=== PATIENT | female | born 1990 | race American Indian/Alaskan Native ===

== ENCOUNTER 2021-08-24 08:37 | Emergency (ER) | payer BC ==
[2021-08-24 08:53] VITALS: BP 119/57
[2021-08-24] MEDS ORDERED: ACETAMINOPHEN 500 MG TAB PO ONE (10:17)
[2021-08-24] MEDS ORDERED: SODIUM CHLORIDE 0.9% 1000 ML 1,000 ML IV ONE (11:26)
--- NOTE | 2021-08-24 11:27 | Emergency Department Report ---
ED Headache HPI - General Chief Complaint: Headache Stated Complaint: MIRGAINE Time Seen by Provider: 08/24/21 09:37 - History of Present Illness Allergies/Adverse Reactions: Allergies No Known Allergies Allergy (Unverified 08/24/21 08:49) ED Review of Systems ROS: Stated complaint: MIRGAINE Other details as noted in HPI Comment: All other systems reviewed and negative ED Past Medical Hx - Past Medical History Previous Medical History?: No - Surgical History Past Surgical History?: No - Family History Family history: no significant - Social History Smoking Status: Never Smoker Substance Use Type: Alcohol ED Physical Exam - General Limitations: No Limitations General appearance: alert, in no apparent distress - Head Head exam: Present: atraumatic, normocephalic - Eye Eye exam: Present: normal appearance - ENT ENT exam: Present: mucous membranes moist - Neck Neck exam: Present: normal inspection - Respiratory Respiratory exam: Present: normal lung sounds bilaterally. Absent: respiratory distress - Cardiovascular Cardiovascular Exam: Present: regular rate, normal rhythm. Absent: systolic murmur, diastolic murmur, rubs, gallop - GI/Abdominal GI/Abdominal exam: Present: soft, normal bowel sounds - Extremities Exam Extremities exam: Present: normal inspection - Back Exam Back exam: Present: normal inspection - Neurological Exam Neurological exam: Present: alert, oriented X3 - Psychiatric Psychiatric exam: Present: normal affect, normal mood - Skin Skin exam: Present: warm, dry, intact, normal color. Absent: rash ED Course Vital Signs 08/24/21 08:52 Temperature 98.4 F Pulse Rate 72 Respiratory 20 Rate Blood Pressure 119/57 O2 Sat by Pulse 100 Oximetry ED Medical Decision Making - Medical Decision Making Vital Signs 08/24/21 08:52 Temperature 98.4 F Pulse Rate 72 Respiratory 20 Rate Blood Pressure 119/57 O2 Sat by Pulse 100 Oximetry Vital Signs 08/24/21 08:52 Temperature 98.4 F Pulse Rate 72 Respiratory 20 Rate Blood Pressure 119/57 O2 Sat by Pulse 100 Oximetry Labs 08/24/21 10:25 Urine Color Straw Urine Turbidity Hazy Urine pH 7.0 Ur Specific [place] 1.010 Urine Protein 30 mg/dl Urine Glucose (UA) Negative Urine Ketones Negative Urine Blood Negative Urine Nitrite Negative Ur Reducing Substances Not Reportable Urine Bilirubin Negative Urine Ictotest Not Reportable Urine Urobilinogen < 2.0 Ur Leukocyte Esterase Negative Urine WBC (Auto) 1.0 Urine RBC (Auto) 4.0 U Epithel Cells (Auto) 17.0 H Urine Bacteria (Auto) 1+ Urine Mucus Few LABS NOTED BP CHECKED ON SEVERAL OCCASIONS BY ELI- NOT ELEVATED 1L NS AND 1 GM TYLENOL FOR PAIN DC HOME WITH D - Differential Diagnosis RO UTI Critical care attestation.: If time is entered above; I have spent that time in minutes in the direct care of this critically ill patient, excluding procedure time. ED Disposition Clinical Impression: Headache Qualifiers: Headache type: unspecified Disposition: 01 HOME / SELF CARE / HOMELESS Is pt being admited?: No Does the pt Need Aspirin: No Condition: Stable Additional Instructions: TYLENOL FOR PAIN STAY WELL HYDRATED FOLLOW UP WITH PCP AND OBGYN URI REFERRALS BELOW Referrals: CRISSY REED MD [Primary Care Provider] - 3-5 Days ALEXUS CAICEDO MD [Staff Physician] - 3-5 Days Time of Disposition: 12:34
[2021-08-24 11:33] LABS: Bacteria,Urine 1+ /HPF (Negative); Mucus,Urine FEW /HPF
[2021-08-24 11:46] LABS: Bilirubin,Urine Negative (Negative); Blood,Urine Negative (Negative); Color,Urine Straw (Yellow); Urobilinogen,Urine < 2.0 mg/dL (<2.0)
== END 2021-08-24 13:27 | disposition home or self-care (01) ==
LOC: ED 08:37
DX: O26.891 Other specified pregnancy related conditions, first trimester (principal); R51.9 Headache, unspecified; Z33.1 Pregnant state, incidental; F10.20 Alcohol dependence, uncomplicated
CPT/HCPCS: 81001; 96360; 99283; J7030; Q0162

== ENCOUNTER 2021-10-17 15:59 | Outpatient (CLI) | payer BC ==
[2021-10-17] MEDS ORDERED: LACTATED RINGERS 1,000 ML IV ONE (16:39)
[2021-10-17 16:52] VITALS: BP 112/58
[2021-10-17 17:03] LABS: Bilirubin,Urine NEG (Negative); Blood,Urine NEG (Negative); Color,Urine Colorless (Yellow); Protein,Urine <15 mg/dL mg/dL (Negative); Urobilinogen,Urine < 2.0 mg/dL (<2.0)
== END 2021-10-17 17:53 | disposition home or self-care (01) ==
LOC: TRG 15:59 → APU 16:01 → TRG 17:53
PROVIDERS: ATTEND Student in an Organized Health Care Education/Training Program
DX: Z34.92 Encounter for supervision of normal pregnancy, unspecified, second trimester (principal); Z3A.22 22 weeks gestation of pregnancy
CPT/HCPCS: 59025; 81001